=== PATIENT | male | born 1955 | race Caucasian/White ===

== ENCOUNTER 2021-11-28 09:57 | Observation (INO) ==
--- NOTE | 2021-11-28 10:06 | Emergency Department Note ---
Impression & Plan Acute electrocardiogram changes, Tachycardia, Acute hypokalemia ED Provider Note NAME: JONO ROSS AGE: 66 SEX: M : 1955 ARRIVES VIA: Walk-In INFORMANT: Patient, ED PROVIDER(S): Carroll Farris MD Chief Complaint: "My heart is racing, my blood pressure is high." HPI: Patient presents due to concern for palpitations and some dizziness. The patient states that he woke up early this morning and had symptoms but he also noticed them before bedtime last evening. The patient did not take his blood p ressure medications this morning. The patient does feel some tingling in the hands but denies any chest pains. Patient typically takes losartan and hydrochlorothiazide but may not take them until around noon time. Patient denies any fevers or chills. The patient denies any history of thyroid issues and believes he has been hydrating well. The patient denies any vomiting or diarrhea. The patient denies any upper respiratory or infectious symptoms. The patient denies any leg swelling, calf pain, history of DVT or PE. The patient has no prior heart or lung history. Patient is a non-smoker did drink 1 beer last evening and denies any drug use. Patient states that he had a similar episode approximate 10 years ago and had been on Lopressor but then he switched medications and this seemed to improve his symptoms. Patient denies any abdominal pain. Patient is unsure as whether or not he is having some anxiety. ROS: See HPI for pertinent positives and negatives. A total of 10 systems were reviewed and otherwise negative. Past medical history: See below Surgical history: See below Social history: See below Physical Exam: GENERAL: Mildly anxious in appearance, NAD, wearing glasses, wearing a mask, non-toxic. EYE EXAM: Normal conjunctiva. PERRL, no anisocoria and EOM's grossly intact w/o pain. NECK: Supple, no nuchal rigidity, no adenopathy, non-tender. No signs of mening ismus. LUNGS: Clear to auscultation. Normal chest wall mechanics. HEART: Tachycardic and regular, no MRG. ABDOMEN: Abdomen soft, non-tender, normo-active bowel sounds, no masses, no rebound or guarding. BACK: No CVA TTP. SKIN: No rashes and no bruising. UPPER EXTREMITIES: Upper extremities are grossly normal. LOWER EXTREMITIES: Grossly normal, no edema. Negative Homans' sign bilaterally. NEURO EXAM: A&O x3, cranial nerves II-XII grossly intact, normal speech, moves all 4 extremities on command w/o issue. Differential diagnoses: Premature contractions, electrolyte abnormality, cardiac dysrhythmia, thyroid dysfunction, pulmonary embolism, infection, gastrointestinal, as well as other pathologies. Course: Patient was seen and evaluated the bedside. Full history physical exam was performed. EKG interpreted by me Sinus tachycardia, rate of 120, normal intervals, normal axis, questionable trace depression V2 V3. Imaging Studies: See Below Cardiac monitoring: An order was placed for continuous cardiac monitoring. The monitor shows a rate of 115 with tachycardic and regular rhythm. MDM: Patient was seen due to concern for palpitations lightheadedness and tachycardia. Blood work is obtained along with an EKG. Patient was treated with some IV fluids given his tachycardia. No signs or stigmata of DVT on exam. The patient has a normal white count H&H and platelet count. Kidney function is unremarkable. Very mild hypokalemia. Troponin is negative. Patient's Covid negative. Chest x-ray is clear. The patient may have very slight subtle changes in depressions in V2 and V3. No priors for comparison. Given this concern the patient does have a moderate risk heart score I did speak with the on-call hospitalist Dr. Juarez and the patient was admitted to the medicine service. Patient was given aspirin as a precaution. Past Med/Surg History Medical History Harrell's esophagus H/O: HTN (hypertension) Surgical History No pertinent past surgical history Social History Smoking Status: Never smoker Hx Alcohol Use: No Hx Substance Use: No Preferred Language: Vincentian Communication Ability: Effective Director Supplier Quality Required: No Beliefs That Will Affect Care: None Current Living Situation: Alone Other Information That Helps Us Care for You: No Feels Safe at Home: Yes Safety Concerns: Feels Safe At This Time Assistive Devices: Glasses Allergies Allergies Allergy/AdvReac Type Severity Reaction Status Date / Time No Known Allergies Allergy Unverified 11/28/21 12:15 Home Meds Home Medications Medication Instructions Recorded Confirmed hydrochlorothiazide 25 mg tablet 25 mg PO QAM 11/28/21 11/28/21 losartan 100 mg tablet 100 mg PO QAM 11/28/21 11/28/21 multivitamin 1 tab PO QAM 11/28/21 11/28/21 omeprazole 20 mg capsule,delayed 20 mg PO DAILYBB 11/28/21 11/28/21 release Results & Data (ED) Vital Signs Vital Signs - 24 hr 11/28/21 10:02 11/28/21 10:11 11/28/21 10:30 Temperature 36.3 C L Temperature Source Temporal Artery Scan Pulse Rate 126 H 104 H 107 H Pulse Rate from SpO2 Sensor 106 H Pulse Rhythm Regular Respiratory Rate 18 20 22 Respiratory Effort / Characteristics Non-Labored Respiratory Depth Normal Blood Pressure 191/100 H 174/86 H Blood Pressure Mean 130 115 Pulse Oximetry 98 99 98 Oxygen Delivery Method Room Air Room Air Sepsis Recent Fever Within 48 Hours No Sepsis New/Unexplained Change in Mental Status No Sepsis Action Taken by Nursing No Action Required 11/28/21 11:00 11/28/21 11:30 11/28/21 12:00 Temperature Temperature Source Pulse Rate 95 H 95 H 97 H Pulse Rate from SpO2 Sensor 95 H 96 H 97 H Pulse Rhythm Respiratory Rate 16 21 11 L Respiratory Effort / Characteristics Respiratory Depth Blood Pressure 188/96 H 173/88 H 160/89 H Blood Pressure Mean 126 116 112 Pulse Oximetry 98 98 97 Oxygen Delivery Method Sepsis Recent Fever Within 48 Hours Sepsis New/Unexplained Change in Mental Status Sepsis Action Taken by Intermediate Medications Current Medication List: was personally reviewed by me Laboratory Data Attestation: I reviewed the patient's lab results. Result diagrams: 11/28/21 10:15 11/28/21 10:15 Lab Results 11/28/21 11/28/21 11/28/21 Range/Units 10:15 10:15 10:15 WBC 8.13 (4.8-10.8) K/uL RBC 5.49 (4.7-6.1) M/uL Hgb 16.7 (14.0-18.0) g/dL Hct 47.2 (42-52) % MCV 86.0 (80-100) fL MCH 30.4 (25-34) pg MCHC 35.4 (32-36) g/dL RDW Std Deviation 39.6 (36.4-46.3) fL RDW Coeff of Jad 12.6 (11.5-14.5) % Plt Count 185 (130-400) K/uL MPV 10.4 (7.4-10.4) fL Immature Gran % (Auto) 0.2 % Neut % (Auto) 58.2 % Lymph % (Auto) 32.5 % [place] % (Auto) 7.7 % Eos % (Auto) 1.2 % Baso % (Auto) 0.2 % Neut # (Auto) 4.72 (1.4-6.5) K/uL Lymph # (Auto) 2.64 (1.2-3.4) K/uL [place] # (Auto) 0.63 H (0.11-0.59) K/uL Eos # (Auto) 0.10 (0-0.5) K/uL Baso # (Auto) 0.02 (0-0.2) K/uL Immature Gran # (Auto) 0.02 (0.00-0.02) K/uL Sodium 137 (136-145) mmol/L Potassium 3.1 L (3.5-5.1) mmol/L Chloride 100 (98-107) mmol/L Carbon Dioxide 26 (21-32) mmol/L Anion Gap 11 (3-11) BUN 13 (6-23) mg/dl Creatinine 0.81 (0.6-1.4) mg/dl Est Cr Clr Drug Dosing 98.5 ml/min Est GFR ( Amer) 107.3 ml/min Est GFR (Non-Af Amer) 92.6 ml/min BUN/Creatinine Ratio 16.0 (10-20) Glucose 119 H (70-99(Fasting)) mg/dl Calcium 9.7 (8.5-10.1) mg/dl Magnesium 2.1 (1.7-2.4) mg/dl Total Bilirubin 0.9 (0.2-1.0) mg/dl AST 20 (13-39) U/L ALT 31 (7-52) U/L Alkaline Phosphatase 56 (34-104) U/L Troponin I < 0.03 (0-0.04) ng/ml Total Protein 7.5 (6.0-8.3) gm/dl Albumin 4.7 (3.4-5.0) gm/dl Globulin 2.8 (2.5-4.0) gm/dl Albumin/Globulin Ratio 1.7 (0.9-2) Lipase 15 (11-82) U/L TSH 2.851 (0.300-4.500) uIu/ml SARS-CoV-2, RNA, NAAT (NEGATIVE) 11/28/21 Range/Units 11:55 WBC (4.8-10.8) K/uL RBC (4.7-6.1) M/uL Hgb (14.0-18.0) g/dL Hct (42-52) % MCV (80-100) fL MCH (25-34) pg MCHC (32-36) g/dL RDW Std Deviation (36.4-46.3) fL RDW Coeff of Jad (11.5-14.5) % Plt Count (130-400) K/uL MPV (7.4-10.4) fL Immature Gran % (Auto) % Neut % (Auto) % Lymph % (Auto) % [place] % (Auto) % Eos % (Auto) % Baso % (Auto) % Neut # (Auto) (1.4-6.5) K/uL Lymph # (Auto) (1.2-3.4) K/uL [place] # (Auto) (0.11-0.59) K/uL Eos # (Auto) (0-0.5) K/uL Baso # (Auto) (0-0.2) K/uL Immature Gran # (Auto) (0.00-0.02) K/uL Sodium (136-145) mmol/L Potassium (3.5-5.1) mmol/L Chloride (98-107) mmol/L Carbon Dioxide (21-32) mmol/L Anion Gap (3-11) BUN (6-23) mg/dl Creatinine (0.6-1.4) mg/dl Est Cr Clr Drug Dosing ml/min Est GFR ( Amer) ml/min Est GFR (Non-Af Amer) ml/min BUN/Creatinine Ratio (10-20) Glucose (70-99(Fasting)) mg/dl Calcium (8.5-10.1) mg/dl Magnesium (1.7-2.4) mg/dl Total Bilirubin (0.2-1.0) mg/dl AST (13-39) U/L ALT (7-52) U/L Alkaline Phosphatase (34-104) U/L Troponin I (0-0.04) ng/ml Total Protein (6.0-8.3) gm/dl Albumin (3.4-5.0) gm/dl Globulin (2.5-4.0) gm/dl Albumin/Globulin Ratio (0.9-2) Lipase (11-82) U/L TSH (0.300-4.500) uIu/ml SARS-CoV-2, RNA, NAAT NEGATIVE (NEGATIVE) Administered Medications Enoxaparin Sodium (Enoxaparin Inj 40 Mg/0.4 Ml Syr) 40 mg SQ Q24H EMILY Stop: 12/28/21 15:59 Last Admin: 11/28/21 16:41 Dose: Not Given Documented by: [id number] Discontinued Medications Aspirin (Aspirin Chew 324 Mg) 324 mg PO NOW STA Stop: 11/28/21 11:51 Last Admin: 11/28/21 11:53 Dose: 324 mg Documented by: [id number] Hydrochlorothiazide (Hydrochlorothiazide 25 Mg Tab) 25 mg PO NOW STA Stop: 11/28/21 10:12 Last Admin: 11/28/21 10:34 Dose: 25 mg Documented by: [id number] Sodium Chloride (Nss 1000ml) 1,000 mls @ 999 mls/hr IV .Q1H1M STA Stop: 11/28/21 11:11 Last Infusion: 11/28/21 11:38 Dose: 0 mls/hr Documented by: [id number] Admin: 11/28/21 10:34 Dose: 999 mls/hr Documented by: [id number] Losartan Potassium (Losartan Potassium 25 Mg Tab) 25 mg PO NOW STA Stop: 11/28/21 10:12 Last Admin: 11/28/21 10:34 Dose: 25 mg Documented by: [id number] Potassium Chloride (Potassium Chloride Crtab 20 Meq Tabcr) 40 meq PO NOW STA Stop: 11/28/21 12:12 Last Admin: 11/28/21 12:18 Dose: 40 meq Documented by: [id number] Imaging Data Radiologist's Impression: Chest X-Ray 11/28/21 10:11 XR chest 1V portable CLINICAL HISTORY: Atypical chest pain. COMPARISON STUDY: No previous studies for comparison. FINDINGS: Lung volumes are normal. Lungs are clear. There is no pneumothorax or pleural effusion. Cardiac size is normal. Mediastinal contours are normal. There is no evidence for pulmonary edema. IMPRESSION: No acute cardiopulmonary findings. ACT 112: Negative or not required by law. Electronically signed by: Dioni Potts M.D. 11/28/2021 10:46 AM Discharge Plan Visit Data Chief Complaint: Cardiac Assessment Stated Complaint: RAPID HEARTRATE, HTN ED Provider: Carroll Farris Discharge Problem: Acute electrocardiogram changes, Tachycardia, Acute hypokalemia Patient Disposition: Admitted As Inpatient Discharge Instructions Interventions: ED Discharge Assessment Last Done: 11/28/21 14:10
[2021-11-28] MEDS ORDERED: hydroCHLOROthiazide 25 MG TAB PO STA (10:11)
[2021-11-28] MEDS ORDERED: SODIUM CHLORIDE 0.9% 1000ML 1,000 ML IV STA (10:11)
[2021-11-28] MEDS ORDERED: LOSARTAN POTASSIUM 25 MG TAB PO STA (10:11)
[2021-11-28 10:28] LABS: Basophils # (auto) 0.02 K/uL (0-0.2); Basophils % (auto) 0.2 %; Eosinophils % (auto) 1.2 %; Hematocrit (blood only) 47.2 % (42-52); Hemoglobin 16.7 g/dL (14.0-18.0); Immature Granulocytes # (auto) 0.02 K/uL (0.00-0.02); Immature Granulocytes % (auto) 0.2 %; Lymphocytes # (auto) 2.64 K/uL (1.2-3.4); Lymphocytes % (auto) 32.5 %; Mean Corpuscular Hemoglobin 30.4 pg (25-34); Mean Corpuscular Hgb Conc 35.4 g/dL (32-36); Mean Platelet Volume 10.4 fL (7.4-10.4); Monocytes # (auto) 0.63 K/uL (0.11-0.59); Monocytes % (auto) 7.7 %; Neutrophils # (auto) 4.72 K/uL (1.4-6.5); Neutrophils % (auto) 58.2 %; Platelet Count 185 K/uL (130-400); RDW Coefficient of Variation 12.6 % (11.5-14.5); RDW Standard Deviation 39.6 fL (36.4-46.3); Red Blood Count 5.49 M/uL (4.7-6.1); White Blood Count 8.13 K/uL (4.8-10.8)
--- NOTE | 2021-11-28 10:48 | XRay Report ---
XR chest 1V portable CLINICAL HISTORY: Atypical chest pain. COMPARISON STUDY: No previous studies for comparison. FINDINGS: Lung volumes are normal. Lungs are clear. There is no pneumothorax or pleural effusion. Car diac size is normal. Mediastinal contours are normal. There is no evidence for pulmonary edema. IMPRESSION: No acute cardiopulmonary findings. ACT 112: Negative or not required by law. Electronically signed by: Dioni Potts M.D. 11/28/2021 10:46 AM
[2021-11-28 10:51] LABS: Alanine Aminotransferase 31 U/L (7-52); Albumin Globulin Ratio 1.7 (0.9-2); Albumin Level 4.7 gm/dl (3.4-5.0); Alkaline Phosphatase 56 U/L (34-104); Anion Gap 11 (3-11); Aspartate Aminotransferase 20 U/L (13-39); Bilirubin,Total 0.9 mg/dl (0.2-1.0); Blood Urea Nitrogen 13 mg/dl (6-23); Calcium 9.7 mg/dl (8.5-10.1); Carbon Dioxide 26 mmol/L (21-32); Chloride 100 mmol/L (98-107); Creatinine Clr Calc Pharmacy 98.5 ml/min; Est GFR (African American) 107.3 ml/min; Est GFR (Non-African American) 92.6 ml/min; Globulin 2.8 gm/dl (2.5-4.0); Glucose 119 mg/dl (70-99(Fasting)); Lipase 15 U/L (11-82); Magnesium 2.1 mg/dl (1.7-2.4); Potassium 3.1 mmol/L (3.5-5.1); Sodium 137 mmol/L (136-145); Total Protein 7.5 gm/dl (6.0-8.3)
[2021-11-28 10:53] LABS: Troponin I < 0.03 ng/ml (0-0.04)
--- NOTE | 2021-11-28 11:36 | Electrocardiogram Report ---
Test Reason : Blood Pressure : / mmHG Vent. Rate : 120 BPM Atrial Rate : 120 BPM P-R Int : 176 ms QRS Dur : 094 ms QT Int : 320 ms P-R-T Axes : 074 077 013 degrees QTc Int : 452 ms Sinus tachycardia Nonspecific ST abnormality Abnormal ECG When compared with ECG of 01-AUG-2013 19:38, Vent. rate has increased BY 41 BPM Non-specific change in ST segment in Inferior leads ST now depressed in Anterior leads Inverted T waves have replaced nonspecific T wave abnormality in Inferior leads Confirmed by Juan J Maldonado ([id number]) on 11/28/2021 11:35:29 AM Referred By: REFERRED SELF Confirmed By:Juan J Maldonado
[2021-11-28] MEDS ORDERED: ASPIRIN CHEW 324 MG PO STA (11:50)
[2021-11-28] MEDS ORDERED: POTASSIUM CHLORIDE CRTAB 20 MEQ TABCR PO STA (12:11)
--- NOTE | 2021-11-28 13:08 | History & Physical Report ---
Date of Service November 28, 2021 Assessment & Plan (1) Atypical chest pain: (2) Tachycardia: (3) Hypertensive urgency: (4) Harrell's esophagus: Plan: Atypical chest pain with tachycardia: -EKG (compared to 2010): NSR, sinus tachycardia, TWI on III (new) -Initial trop is negative -HEART score of 4 - will trend the trop, EKG Am and will get an echo -if Echo showed any wall motion abnormalities then will consult cards ----- If not outpt cardiac stress test -pt received potassium supplement for hypoK+ -will do NPO after MN -admit to Obs tele HTN with HTN urgency: -pt did not take his home medication today -will continue home HTN meds and prn labetalol for elevated BP -admitted to tele Barretts esophagus with GERD: -will continue daily omeprazole DVT ppx: Lovenox Diet: Heart healthy Full Code History of Present Illness Chief Complaint: Increased HR and Chest discomfort Primary Care Provider: Nimesh Stevenson, Pt is a 66 y/o M with hx of HTN, Barretts esophagus, GERD came into the ER with chest discomfort. Per pt he has been having chest discomfort (Epigastric, substernal and L sided) intermittently for 4 months. Sometimes it happens with activities and last about 30 mins even after resting. Denied any associated with SOB, dizziness, diaphoresis or syncope. Per pt, he does not experience any CP, SOB or dizziness with exercise. Denied any hx of CVA or [place]. Denied any hx of smoking, leg swelling, orthopnea. Yesterday he noticed his HR was high and it remained high today therefore he came to the ER. Denied any palpitation, dizziness, N/V, fever, rash or diarrhea. In the ER: pt received aspirin 324mg, HCTZ 25mg and Losartan 25mg and KCL 40 meq and 1L NS bolus Allergies Allergy/AdvReac Type Severity Reaction Status Date / Time No Known Allergies Allergy Unverified 11/28/21 12:15 Home Medications Medication Instructions Recorded Confirmed Type hydrochlorothiazide 25 mg tablet 25 mg PO QAM 11/28/21 11/28/21 History losartan 100 mg tablet 100 mg PO QAM 11/28/21 11/28/21 History multivitamin 1 tab PO QAM 11/28/21 11/28/21 History omeprazole 20 mg capsule,delayed 20 mg PO DAILYBB 11/28/21 11/28/21 History release Past Med/Surg History Medical History (Updated 11/28/21 @ 13:06 by Mercedes Beth MD) Harrell's esophagus H/O: HTN (hypertension) Surgical History No pertinent past surgical history Social History Smoking Status: Never smoker Hx Alcohol Use: Yes Hx Substance Use: No Current Living Situation: Spouse Feels Safe at Home: Yes Review of Systems Review of Systems: At least 10 Review of systems were reviewed and all negative except as indicated in HPI Physical Exam Physical Exam: General:. NAD, well developed, well nourished, average body habitus HEENT:. Normocephalic and atraumatic, Normal Conjunctiva, EOMI, Sclera is non- icteric Lungs:. No signs of respiratory distress, CTA, no wheezing or crackles Heart:. Normal S1, S2, no murmur Abdominal:. ND, Soft, NT MSK:. No deformities of UE and LE, No leg edema Skin:. no rash or open wound Psych:. AAOx3, normal affect Results & Data Results & Data ([facility]) Vital Signs (Past 12 Hours) Vital Signs Temp Pulse Resp BP Pulse Ox 11/28/21 11:30 95 H 21 173/88 H 98 11/28/21 11:00 95 H 16 188/96 H 98 11/28/21 10:30 107 H 22 174/86 H 98 11/28/21 10:11 104 H 20 99 11/28/21 10:02 36.3 C L 126 H 18 191/100 H 98 Laboratory Results Short CBC 11/28/21 Range/Units 10:15 WBC 8.13 (4.8-10.8) K/uL Hgb 16.7 (14.0-18.0) g/dL Hct 47.2 (42-52) % Plt Count 185 (130-400) K/uL BMP 11/28/21 10:15 Sodium 137 Potassium 3.1 L Chloride 100 Carbon Dioxide 26 BUN 13 Creatinine 0.81 Glucose 119 H Calcium 9.7 Cardiac Enzymes 11/28/21 Range/Units 10:15 Troponin I < 0.03 (0-0.04) ng/ml Liver Function 11/28/21 Range/Units 10:15 Total Bilirubin 0.9 (0.2-1.0) mg/dl AST 20 (13-39) U/L ALT 31 (7-52) U/L Alkaline Phosphatase 56 (34-104) U/L Albumin 4.7 (3.4-5.0) gm/dl Diagnostic Findings Chest X-Ray 11/28/21 10:11 XR chest 1V portable CLINICAL HISTORY: Atypical chest pain. COMPARISON STUDY: No previous studies for comparison. FINDINGS: Lung volumes are normal. Lungs are clear. There is no pneumothorax or pleural effusion. Cardiac size is normal. Mediastinal contours are normal. There is no evidence for pulmonary edema. IMPRESSION: No acute cardiopulmonary findings. ACT 112: Negative or not required by law. Electronically signed by: Dioni Potts M.D. 11/28/2021 10:46 AM Code Status & VTE Plan VTE Prophylaxis Plan VTE Prophylaxis will be ordered: Yes
[2021-11-28] MEDS ORDERED: ENOXAPARIN INJ 40 MG/0.4 ML SYR SQ SCH (16:00)
--- NOTE | 2021-11-28 19:56 | Communication Note ---
Date of Service: November 28, 2021 Pt's trop came back at 0.06, elevated from <0.03. Examined the pt at bedside: pt was walking in the room. He denied any CP, SOB, diaphoresis or any acute discomfort EKG: NSR, no TWI on lead III, no ST elevation. Plan: -Trop elevation likely due to pt's elevated BP in the afternoon - VSS now and pt is asymptomatic -will trend trop and AM EKG - will consult Cardiology as well - pt is sched to get an Echo
[2021-11-29] MEDS ORDERED: PANTOprazole 40 MG TAB PO SCH (06:30)
[2021-11-29 07:20] LABS: BUN Creatinine Ratio 15.1 (10-20); Calcium 9.3 mg/dl (8.5-10.1); Creatinine Clr Calc Pharmacy 93.3 ml/min; Est GFR (African American) 104.7 ml/min; Est GFR (Non-African American) 90.4 ml/min; Magnesium 1.9 mg/dl (1.7-2.4); Potassium 3.5 mmol/L (3.5-5.1)
--- NOTE | 2021-11-29 07:49 | Cardiology Consultation ---
Date of Consultation November 29, 2021 Assessment & Plan (1) Atypical chest pain: (2) Tachycardia: (3) Hypertensive urgency: Patient is a 66-year-old male with cardiovascular risk factors of hypertension, hyperlipidemia who presents with chest pain atypical for angina but with elevated heart rates and blood pressure and concerning complaints. EKGs and reveal without acute ischemic findings. Echocardiogram with preserved LV systolic function however second troponin minimally elevated. In light of symptoms risk factors and findings as noted will repeat troponin and EKG and tentatively schedule for stress echocardiogram this morning patient agreeable History of Present Illness Reason for Consultation: Chest pain elevated heart rate elevated blood pressure Requesting Physician: Dr Box Attending Physician: Kenny Box MD History of Present Illness Patient is a 66-year-old male with underlying history of hypertension, chronic gastroesophageal reflux With Harrell's esophagus. Evening prior to admission patient noted heart rate and blood pressure elevated prior to going to bed. Heart rate in the 90s to 100 were usual heart rates in the 60s and 70s. In the morning on rising and noted heart rates remain persistently elevated. Did not check blood pressure but assumed it to be up. Was concerned and presented to the emergency room. He does note to some low level ache in his chest occasionally and occasional dizziness with exercise. No distinct history of angina, congestive heart failure, myocardial infarction, rheumatic fever scarlet fever or valvular heart disease. No history of TIA or stroke. No fevers chills or unexplained infections. Appetite has been good weight has been trending slowly upward. No bleeding issues. Taking usual medications as prescribed. EKGs on presentation without acute changes. Echocardiogram with preserved LV systolic function. Troponin with trivial elevation on second test Allergies Allergy/AdvReac Type Severity Reaction Status Date / Time No Known Allergies Allergy Unverified 11/28/21 12:15 Home Medications Medication Instructions Recorded Confirmed Type hydrochlorothiazide 25 mg tablet 25 mg PO QAM 11/28/21 11/28/21 History losartan 100 mg tablet 100 mg PO QAM 11/28/21 11/28/21 History multivitamin 1 tab PO QAM 11/28/21 11/28/21 History omeprazole 20 mg capsule,delayed 20 mg PO DAILYBB 11/28/21 11/28/21 History release Patient History Medical History Harrell's esophagus H/O: HTN (hypertension) Surgical History No pertinent past surgical history Social History Smoking Status: Never smoker Hx Alcohol Use: No Hx Substance Use: No Preferred Language: [place] Islander Communication Ability: Effective Community Relations Advisor Required: No Beliefs That Will Affect Care: None Current Living Situation: Alone Other Information That Helps Us Care for You: No Feels Safe at Home: Yes Safety Concerns: Feels Safe At This Time Assistive Devices: Glasses Review of Systems Review of Systems: All systems reviewed & are unremarkable except as noted in HPI & below Physical Exam Constitutional: WD/WN, vitals as above Eyes: PERRL, conjunctivae normal, anicteric sclerae ENMT: external ear and nose normal, oropharynx normal Neck: trachea midline, no thyromegaly Respiratory: normal respiratory effort, lungs clear to auscultation Cardiovascular: Rate/Rhythm: regular rate and regular rhythm Heart Sounds: normal S1 and normal S2; no gallop and no murmur Palpation: normal PMI Vessels: normal carotid upstroke and radial pulses present; no JVD and no carotid bruit Extremities: no edema Gastrointestinal (Abdomen): normal bowel sounds, soft, nontender, no hepatosplenomegaly Musculoskeletal: no cyanosis or clubbing, extremities motor strength 5/5 Skin: no rashes, warm and dry Neurologic: PERRL, EOMI, accommodation nl, no face palsy, no dysarthria Psychiatric: A+Ox3, euthymic affect Results & Data ([facility]) Vital Signs (Past 12 Hours) Vital Signs Temp Pulse Pulse Resp BP Pulse Ox 11/29/21 07:00 69 11/29/21 02:36 36.4 C L 59 L 16 135/74 96 11/28/21 23:20 61 11/28/21 22:32 36.8 C 96 H 18 133/76 96 Laboratory Results Laboratory Results - last 24 hr 11/28/21 11/28/21 11/28/21 10:15 10:15 10:15 WBC 8.13 RBC 5.49 Hgb 16.7 Hct 47.2 MCV 86.0 MCH 30.4 MCHC 35.4 RDW Std Deviation 39.6 RDW Coeff of Jad 12.6 Plt Count 185 MPV 10.4 Immature Gran % (Auto) 0.2 Neut % (Auto) 58.2 Lymph % (Auto) 32.5 [place] % (Auto) 7.7 Eos % (Auto) 1.2 Baso % (Auto) 0.2 Neut # (Auto) 4.72 Lymph # (Auto) 2.64 [place] # (Auto) 0.63 H Eos # (Auto) 0.10 Baso # (Auto) 0.02 Immature Gran # (Auto) 0.02 Sodium 137 Potassium 3.1 L Chloride 100 Carbon Dioxide 26 Anion Gap 11 BUN 13 Creatinine 0.81 Est Cr Clr Drug Dosing 98.5 Est GFR ( Amer) 107.3 Est GFR (Non-Af Amer) 92.6 BUN/Creatinine Ratio 16.0 Glucose 119 H Calcium 9.7 Magnesium 2.1 Total Bilirubin 0.9 AST 20 ALT 31 Alkaline Phosphatase 56 Troponin I < 0.03 Total Protein 7.5 Albumin 4.7 Globulin 2.8 Albumin/Globulin Ratio 1.7 Lipase 15 TSH 2.851 Hepatitis C Ab Screen SARS-CoV-2, RNA, NAAT 11/28/21 11/28/21 11/28/21 10:15 11:55 15:59 WBC RBC Hgb Hct MCV MCH MCHC RDW Std Deviation RDW Coeff of Jad Plt Count MPV Immature Gran % (Auto) Neut % (Auto) Lymph % (Auto) [place] % (Auto) Eos % (Auto) Baso % (Auto) Neut # (Auto) Lymph # (Auto) [place] # (Auto) Eos # (Auto) Baso # (Auto) Immature Gran # (Auto) Sodium Potassium Chloride Carbon Dioxide Anion Gap BUN Creatinine Est Cr Clr Drug Dosing Est GFR ( Amer) Est GFR (Non-Af Amer) BUN/Creatinine Ratio Glucose Calcium Magnesium Total Bilirubin AST ALT Alkaline Phosphatase Troponin I 0.06 H* Total Protein Albumin Globulin Albumin/Globulin Ratio Lipase TSH Hepatitis C Ab Screen Pending SARS-CoV-2, RNA, NAAT NEGATIVE 11/29/21 11/29/21 06:37 06:37 WBC RBC Hgb Hct MCV MCH MCHC RDW Std Deviation RDW Coeff of Jad Plt Count MPV Immature Gran % (Auto) Neut % (Auto) Lymph % (Auto) [place] % (Auto) Eos % (Auto) Baso % (Auto) Neut # (Auto) Lymph # (Auto) [place] # (Auto) Eos # (Auto) Baso # (Auto) Immature Gran # (Auto) Sodium 137 Potassium 3.5 Chloride 103 Carbon Dioxide 30 Anion Gap 4 BUN 13 Creatinine 0.86 Est Cr Clr Drug Dosing 93.3 Est GFR ( Amer) 104.7 Est GFR (Non-Af Amer) 90.4 BUN/Creatinine Ratio 15.1 Glucose 105 H Calcium 9.3 Magnesium 1.9 Total Bilirubin AST ALT Alkaline Phosphatase Troponin I Pending Total Protein Albumin Globulin Albumin/Globulin Ratio Lipase TSH Hepatitis C Ab Screen SARS-CoV-2, RNA, NAAT
[2021-11-29] MEDS ORDERED: MULTIVITAMIN TAB PO SCH (09:00)
[2021-11-29] MEDS ORDERED: LOSARTAN POTASSIUM 50 MG TAB PO SCH (09:00)
[2021-11-29] MEDS ORDERED: hydroCHLOROthiazide 25 MG TAB PO SCH (09:00)
--- NOTE | 2021-11-29 10:51 | Communication Note ---
Date of Service: November 29, 2021 Patient underwent stress echocardiogram without difficulty Patient exercised to 7 minutes on a standard Dorian protocol for an estimate of 8 METS while achieving greater than 90% age-predicted maximal heart rate without cardiac symptoms. Blood pressure response was hypertensive EKG response was normal other than occasional ventricular ectopic beats early in exercise. LV systolic function is normal and hyperdynamic with stress with no evidence of stress-induced ischemia Recommendations: Increase antihypertensive regimen add carvedilol 3.125 mg twice per day Follow-up closely with PCP
[2021-11-29] MEDS ORDERED: carvediloL 3.125 MG TAB PO SCH (11:00)
--- NOTE | 2021-11-29 12:49 | Electrocardiogram Report ---
Test Reason : Blood Pressure : / mmHG Vent. Rate : 076 BPM Atrial Rate : 076 BPM P-R Int : 176 ms QRS Dur : 076 ms QT Int : 376 ms P-R-T Axes : 040 068 051 degrees QTc Int : 423 ms Normal sinus rhythm Low voltage QRS Borderline ECG When compared with ECG of 28-NOV-2021 10:07, Vent. rate has decreased BY 44 BPM T wave inversion no longer evident in Inferior leads Confirmed by Juan J Maldonado ([id number]) on 11/29/2021 12:49:15 PM Referred By: REFERRED SELF Confirmed By:Juan J Maldonado
--- NOTE | 2021-11-29 12:57 | Electrocardiogram Report ---
Test Reason : Blood Pressure : / mmHG Vent. Rate : 059 BPM Atrial Rate : 059 BPM P-R Int : 190 ms QRS Dur : 086 ms QT Int : 434 ms P-R-T Axes : 032 065 047 degrees QTc Int : 429 ms Sinus bradycardia Otherwise normal ECG When compared with ECG of 28-NOV-2021 17:32, (unconfirmed) Nonspecific T wave abnormality no longer evident in Anterior leads Confirmed by Juan J Maldonado ([id number]) on 11/29/2021 12:57:18 PM Referred By: REFERRED SELF Confirmed By:Juan J Maldonado
--- NOTE | 2021-11-29 14:09 | Discharge Summary ---
Date of Service November 29, 2021 Admission HPI Per Admitting Provider Pt is a 66 y/o M with hx of HTN, Barretts esophagus, GERD came into the ER with chest discomfort. Per pt he has been having chest discomfort (Epigastric, substernal and L sided) intermittently for 4 months. Sometimes it happens with activities and last about 30 mins even after resting. Denied any associated with SOB, dizziness, diaphoresis or syncope. Per pt, he does not experience any CP, SOB or dizziness with exercise. Denied any hx of CVA or KS. Denied any hx of smoking, leg swelling, orthopnea. Yesterday he noticed his HR was high and it remained high today therefore he came to the ER. Denied any palpitation, dizziness, N/V, fever, rash or diarrhea. In the ER: pt received aspirin 324mg, HCTZ 25mg and Losartan 25mg and KCL 40 meq and 1L NS bolus Admission Exam Per Admitting Provider General:.NAD, well developed, well nourished, average body habitus HEENT:.Normocephalic and atraumatic, Normal Conjunctiva, EOMI, Sclera is non- icteric Lungs:.No signs of respiratory distress, CTA, no wheezing or crackles Heart:.Normal S1, S2, no murmur Abdominal:.ND, Soft, NT MSK:.No deformities of UE and LE, No leg edema Skin:.no rash or open wound Psych:.AAOx3, normal affect Principal Diagnosis Atypical chest pain Hypertensive urgency Discharge Exam GENERAL: Alert and oriented x3. NAD, on RA. HEENT: No pallor, no icterus. Pupils equal, round and reactive to light. Oral mucosa moist. NECK: No JVD, no neck masses. HEART: S1 and S2 heard. Regular rate and rhythm. No murmur, no gallop. RESPIRATORY SYSTEM: Normal AP diameter. No accessory muscle use. No wheezing, no crackles. ABDOMEN: Soft, bowel sounds present, nontender, no distention. CENTRAL NERVOUS SYSTEM: No facial droop. Speech is clear. Obeys simple commands. Moves extremities. EXTREMITIES: No edema, no erythema seen. Discharge Data Allergies Allergy/AdvReac Type Severity Reaction Status Date / Time No Known Allergies Allergy Unverified 11/28/21 12:15 Consultations 11/28/21 12:05 ED Decision to Admit Stat 11/28/21 19:56 Consult Cardiology Routine Hospital Course (1) Atypical chest pain: (2) Tachycardia: (3) Hypertensive urgency: (4) Harrell's esophagus: 66-year-old gentleman with history of hypertension, Harrell's esophagus, GERD came into the ED with chest discomfort 11/28. He was admitted under observation. Troponin trend fairly WNL except second troponin level elevated minimally at 0.06, blood pressures were elevated upon presentation, admitting EKG NSR/TWI on III, admitting echo with ejection fraction of 65 to 70% and grade 1 diastolic dysfunction, 11/29 stress echocardiogram negative for inducible ischemia but patient exhibited hypertensive response with the stress. Cardiology evaluated the patient, ACS has been ruled out. Carvedilol has been added for hypertensive urgency. Blood pressure is better at the time of discharge. Patient advised to take blood pressure measurements at home and maintain a blood pressure log to take it to primary care physician for necessary adjustment in his blood pressure medication. Following instructions were communicated at the point of discharge: Follow-up with the primary care physician in a week time. Measure blood pressure 2 times a day, maintain blood pressure log, take it to your primary care physician so that it helps adjust your blood pressure medication as an outpatient. Cardiology evaluated you while inpatient for chest pain rule out acute coronary syndrome, your stress test was normal, carvedilol has been added as an antihypertensive to your medication list. Take medications as prescribed. Total Time Total Time Spent Total Time Spent (In Minutes): 33 Discharge Plan Discharge Items Patient Disposition: Home - Self-Care Reason For Visit: CHEST PAIN - ATYPICAL Discharge Diagnosis: Atypical chest pain Hypertensive urgency Activity: Resume your previous activity Non-emergency contact: Primary Care Provider Call non-emergency contact if: you have any medication questions Follow-up/Referrals: Nimesh Stevenson, [Primary Care Provider] - Diet: Heart Healthy Addtl Attending Provider Instructions: Follow-up with the primary care physician in a week time. Measure blood pressure 2 times a day, maintain blood pressure log, take it to your primary care physician so that it helps adjust your blood pressure medication as an outpatient. Cardiology evaluated you while inpatient for chest pain rule out acute coronary syndrome, your stress test was normal, carvedilol has been added as an antihypertensive to your medication list.\ Take medications as prescribed. Pending Studies at Discharge: No Stand-Alone Forms: My ITema, Smoking Cessation Medications and DC Order Prescriptions: New carvedilol 3.125 mg Tablet 3.125 mg PO BID Qty: 60 RF: 0 Continued multivitamin Tablet 1 tab PO QAM RF: 0 omeprazole 20 mg Capsule,Delayed Release(Dr/Ec) 20 mg PO DAILYBB RF: 0 hydrochlorothiazide 25 mg tablet 25 mg PO QAM RF: 0 losartan 100 mg tablet 100 mg PO QAM RF: 0 Discharge Orders: Discharge Order (Routine); Ordered 11/29/21 Ordered By: Kenny Box Admission Data Admit Date/Time: 11/28/21 12:28 Attending Provider: Kenny Box Admit Provider: Mercedes Beth Primary Care Provider: Nimesh Stevenson Other Providers: Mercedes Beth ; Reinier Goyal Other Interventions: Discharge Summary Assessment (RN) Last Done: 11/29/21 13:59
== END 2021-11-29 15:15 | disposition home or self-care (01) ==
LOC: ED 09:57 → 2S 09:57 → SUATTDRO 12:28 → 2S 14:10